=== PATIENT | male | born 1940 | race Hispanic/Latino ===

== ENCOUNTER 2022-01-17 10:52 | Inpatient (IN) | payer OTHER, MEDICARE ==
[~2022-01-17] VITALS: Ht 166.4 cm; Wt 74.4 kg
[2022-01-17] VITALS (48 sets, daily range): BP systolic 101–225; BP diastolic 35–80
[2022-01-17] MEDS ORDERED: NOREPINEPHRINE BITARTRATE 8 MG in DEXTROSE 5%-WATER 250 ML IV PRN (11:30)
[2022-01-17] MEDS ORDERED: AMINOCAPROIC ACID 5,000MG VIAL 15,000 MG in 0.9% NACL 500ML IV.SOLN 420 ML IV PRN (11:30)
[2022-01-17] MEDS ORDERED: METOPROLOL TARTRATE 25 MG TAB PO SCH (11:30)
[2022-01-17] MEDS ORDERED: EPINEPHRINE PF 1MG (1:1,000) 10 MG in 0.9% NACL 250ML 240 ML IV PRN ×2 (11:30→17:30)
[2022-01-17 11:49] LABS: HEMATOCRIT 28.5 % (42-54); MEAN CORPUSCULAR HEMOGLOBIN 29.2 pg (27.0-33.0); MEAN CORPUSCULAR HGB CONC 34.4 g/dL (32.0-36.0); MEAN CORPUSCULAR VOLUME 84.8 fL (79-99); RED BLOOD CELL COUNT(AUTO) 3.36 MIL/uL (4.50-6.20); RED CELL DISTRIBUTION WIDTH 13.6 % (11.0-15.5); WHITE BLOOD COUNT (AUTO) 3.1 K/uL (4.8-10.8)
[2022-01-17 12:00] LABS: ABG BASE EXCESS 2.7 mmol/L (-2.0-3.0); ABG OXYGEN SATURATION 98.4 % (95.0-99.0); ABG PCO2 21 mmHg (35-48)
[2022-01-17 12:00] LABS: HEMOGLOBIN A1C 6.9 % (4.0-6.0)
[2022-01-17 12:01] LABS: INR 0.98 (0.85-1.15); PROTHROMBIN TIME 10.7 SEC (9.6-11.6)
[2022-01-17 12:03] LABS: ALBUMIN 2.7 g/dL (3.5-5.0); CREATININE 2.5 mg/dL (0.5-1.5); PARTIAL THROMBOPLASTIN TIME 28.1 SEC (26.3-35.5); TOTAL PROTEIN, SERUM 6.4 g/dL (6.0-8.3)
[2022-01-17] MEDS ORDERED: NITROGLYCERIN 50MG/D5W 250ML 1 BOT ONE (14:51)
[2022-01-17] MEDS ORDERED: CEFAZOLIN SODIUM 1 GM VIAL IVP PRN (15:00)
[2022-01-17] MEDS ORDERED: EPINEPHRINE PF 1MG (1:1,000) 1 MG/ML AMP ONE (16:04)
[2022-01-17] MEDS ORDERED: PROTAMINE SULFATE 10 MG/ML 25ML VIAL IV ONE (16:04)
[2022-01-17] MEDS ORDERED: NOREPINEPHRINE BITARTRATE 1 MG/1 ML ML IV ONE (16:04)
[2022-01-17] MEDS ORDERED: PROPOFOL 10 MG/ML 20ML VIAL IV ONE (16:04)
[2022-01-17] MEDS ORDERED: HEPARIN 10,000 UNIT/10ML (1,000 UNIT/ML) VIAL ONE (16:04)
[2022-01-17] MEDS ORDERED: FENTANYL CITRATE PF 50 MCG/1 ML 20ML VIAL IJ ONE (16:04)
[2022-01-17] MEDS ORDERED: LIDOCAINE PF 100MG/5ML (2%) SYRINGE 5ML ONE (16:04)
[2022-01-17] MEDS ORDERED: ESMOLOL HCL 10 MG/ML 10 ML VIAL ONE (16:04)
[2022-01-17] MEDS ORDERED: SODIUM BICARB 50MEQ 50ML VIAL 150 ML ONE (16:04)
[2022-01-17] MEDS ORDERED: ROCURONIUM 10MG/1ML SYR 10 MG/ML ML ONE ×2 (16:05→18:02)
[2022-01-17] MEDS ORDERED: ETOMIDATE 20MG VIAL ONE (16:06)
[2022-01-17] MEDS ORDERED: LOSA100T58 PO (16:16)
[2022-01-17] MEDS ORDERED: ESOM40CA54 PO (16:16)
[2022-01-17] MEDS ORDERED: HYDR-4153 PO (16:16)
[2022-01-17] MEDS ORDERED: NIFE90TA45 PO (16:16)
[2022-01-17] MEDS ORDERED: METO100T14 PO (16:16)
[2022-01-17] MEDS ORDERED: FENO145T26 PO (16:16)
[2022-01-17] MEDS ORDERED: GLIP10TA19 PO (16:16)
[2022-01-17] MEDS ORDERED: ATOR-2 PO (16:16)
[2022-01-17] MEDS ORDERED: LINA5TAB PO (16:16)
[2022-01-17] MEDS ORDERED: DOXA4TAB3 PO (16:16)
[2022-01-17] MEDS ORDERED: FURO20TA4 PO (16:16)
[2022-01-17] MEDS ORDERED: MIRA50TA PO (16:16)
[2022-01-17] MEDS ORDERED: CEFAZOLIN SODIUM 1 GM VIAL ONE (16:33)
[2022-01-17] MEDS ORDERED: PAPAVERINE HCL 30 MG/ML 2ML VIAL ONE (16:34)
[2022-01-17] MEDS ORDERED: VASOPRESSIN 20 UNITS/ML 1ML VIAL ONE (16:46)
[2022-01-17] MEDS ORDERED: AMIODARONE 150MG VIAL ONE (16:46)
[2022-01-17 17:04] LABS: ABG BASE EXCESS -3.2 mmol/L (-2.0-3.0); ABG HCO3 21.4 mmol/L (21.0-28.0); ABG OXYGEN SATURATION 99.4 % (95.0-99.0); ABG PCO2 36 mmHg (35-48)
[2022-01-17] MEDS ORDERED: POTASSIUM CHLORIDE 20MEQ/100ML 300 ML IV ONE (17:07)
[2022-01-17] MEDS ORDERED: SODIUM BICARB 50MEQ 50ML VIAL 100 ML ONE (17:23)
[2022-01-17] MEDS ORDERED: MORPHINE 2 MG SYG IV PRN (17:30)
[2022-01-17] MEDS ORDERED: DEXTROSE 50%-WATER 50 ML DISP.SYRIN IV PRN (17:30)
[2022-01-17] MEDS ORDERED: PROPOFOL 1000 MG/100 ML 100 ML IV PRN (17:30)
[2022-01-17] MEDS ORDERED: NITROGLYCERIN 50MG/D5W 250ML 250 BOT IV SCH (17:30)
[2022-01-17] MEDS ORDERED: 0.9%NACL 1000ML 1,000 ML IV SCH (17:30)
[2022-01-17] MEDS ORDERED: MAGNESIUM 2GM PREMIX 50ML 50 ML IV PRN (17:30)
[2022-01-17] MEDS ORDERED: 0.9% NACL 500ML IV.SOLN 500 ML IV SCH (17:30)
[2022-01-17] MEDS ORDERED: POTASSIUM PHOS 15 mMOL+NS250ML 250 ML IV PRN (17:30)
[2022-01-17] MEDS ORDERED: ALBUMIN (HUMAN) 5% 250 ML IV PRN (17:30)
[2022-01-17] MEDS ORDERED: NOREPINEPHRIN 4MG/NS 250ML 250 ML IV PRN (17:30)
[2022-01-17] MEDS ORDERED: GLUCAGON 1MG KIT 1 MG ML IM PRN (17:30)
[2022-01-17] MEDS ORDERED: INSULIN REGULAR, HUMAN 3ML 100 UNIT in 0.9%NACL 100ML 99 ML IV SCH ×2 (17:30)
[2022-01-17] MEDS ORDERED: AMINOCAPROIC ACID 5,000MG VIAL 15,000 MG in 0.9% NACL 250ML 250 ML IV SCH (17:30)
[2022-01-17] MEDS ORDERED: ONDANSETRON 4MG INJ IV PRN (17:30)
[2022-01-17] MEDS ORDERED: TRAMADOL HCL 50 MG TABLET PO PRN (17:30)
[2022-01-17] MEDS ORDERED: ACETAMINOPHEN 650 MG SUPPOSITORY RC PRN (17:30)
[2022-01-17] MEDS ORDERED: 0.9%NACL 10ML VIAL IVP PRN (17:30)
[2022-01-17 17:43] LABS: ABG BASE EXCESS -1.6 mmol/L (-2.0-3.0); ABG HCO3 22.7 mmol/L (21.0-28.0); ABG OXYGEN SATURATION 99.4 % (95.0-99.0); ABG PCO2 37 mmHg (35-48)
[2022-01-17] MEDS ORDERED: MAGNESIUM SULFATE 4.06 MEQ/ML ***TPN USE ONLY IJ ONE (18:09)
[2022-01-17 18:23] LABS: ABG BASE EXCESS 4.5 mmol/L (-2.0-3.0); ABG HCO3 27.6 mmol/L (21.0-28.0); ABG OXYGEN SATURATION 99.2 % (95.0-99.0); ABG PCO2 35 mmHg (35-48)
[2022-01-17 19:10] LABS: ABG BASE EXCESS -3.1 mmol/L (-2.0-3.0); ABG HCO3 21.3 mmol/L (21.0-28.0); ABG OXYGEN SATURATION 99.4 % (95.0-99.0); ABG PCO2 36 mmHg (35-48)
[2022-01-17 19:43] LABS: ABG BASE EXCESS -2.6 mmol/L (-2.0-3.0); ABG OXYGEN SATURATION 99.3 % (95.0-99.0); ABG PCO2 29 mmHg (35-48)
[2022-01-17] MEDS ORDERED: ASPIRIN 81MG CHEW TAB NG ONE (20:00)
[2022-01-17] MEDS: FAMOTIDINE 20MG VIAL IV SCH (20:32)
[2022-01-17] MEDS: ATORVASTATIN 40 MG TABLET PO SCH (20:32)
[2022-01-17 20:38] LABS: ABG BASE EXCESS 2.3 mmol/L (-2.0-3.0); ABG HCO3 23.9 mmol/L (21.0-28.0); ABG OXYGEN SATURATION 99.1 % (95.0-99.0); ABG PCO2 29 mmHg (35-48)
[2022-01-17] MEDS: POTASSIUM CHLORIDE 20MEQ/100ML 100 ML IV PRN ×3 (20:42→22:58)
[2022-01-17] MEDS: CALCIUM GLUC 1GM 1 GM in 0.9%NACL 50ML 50 ML IV PRN (20:42)
[2022-01-17 20:46] LABS: MEAN CORPUSCULAR HEMOGLOBIN 29.6 pg (27.0-33.0); MEAN CORPUSCULAR HGB CONC 34.9 g/dL (32.0-36.0); MEAN CORPUSCULAR VOLUME 84.8 fL (79-99); RED BLOOD CELL COUNT(AUTO) 4.6 MIL/uL (4.50-6.20); RED CELL DISTRIBUTION WIDTH 13.6 % (11.0-15.5); WHITE BLOOD COUNT (AUTO) 3.9 K/uL (4.8-10.8)
[2022-01-17 20:56] LABS: INR 1.17 (0.85-1.15); PROTHROMBIN TIME 12.6 SEC (9.6-11.6)
[2022-01-17 20:57] LABS: CREATININE 1.7 mg/dL (0.5-1.5); MAGNESIUM 2.5 mg/dL (1.80-2.40); PHOSPHORUS 3.5 mg/dL (2.5-4.9); POTASSIUM 3.6 mmol/L (3.5-5.1)
[2022-01-17 20:58] LABS: PARTIAL THROMBOPLASTIN TIME 26.1 SEC (26.3-35.5)
[2022-01-17] MEDS ORDERED: FAMOTIDINE 20MG VIAL IV SCH (21:00)
[2022-01-17 21:34] LABS: ABG BASE EXCESS 1.5 mmol/L (-2.0-3.0); ABG HCO3 23.1 mmol/L (21.0-28.0); ABG OXYGEN SATURATION 98.6 % (95.0-99.0); ABG PCO2 29 mmHg (35-48)
[2022-01-17 22:35] LABS: ABG BASE EXCESS -0.6 mmol/L (-2.0-3.0); ABG HCO3 22.2 mmol/L (21.0-28.0); ABG OXYGEN SATURATION 98.4 % (95.0-99.0); ABG PCO2 31 mmHg (35-48)
[2022-01-17] MEDS: CEFAZOLIN SODIUM 1 GM VIAL IV SCH (22:39)
[2022-01-17 23:46] LABS: ABG BASE EXCESS 0.2 mmol/L (-2.0-3.0); ABG HCO3 23.3 mmol/L (21.0-28.0); ABG OXYGEN SATURATION 97.5 % (95.0-99.0); ABG PCO2 33 mmHg (35-48)
[2022-01-18] VITALS (72 sets, daily range): BP systolic 84–215; BP diastolic 28–109
[2022-01-18] MEDS ORDERED: NICARDIPINE 25MG INJ 100 MG in 0.9%NACL 100ML 60 ML IV SCH ×2
[2022-01-18] MEDS ORDERED: ALBUMIN (HUMAN) 5% 250 ML IV ONE ×2 (00:06→00:28)
[2022-01-18] MEDS ORDERED: NICARDIPINE 25MG INJ IV ONE (00:07)
[2022-01-18] MEDS: 0.9%NACL 1000ML 1,000 ML IV SCH ×2 (00:28→14:36)
[2022-01-18] MEDS ORDERED: ALBUMIN (HUMAN) 5% 250 ML IV SCH ×2 (00:30)
[2022-01-18] MEDS: CALCIUM GLUC 1GM 1 GM in 0.9%NACL 50ML 50 ML IV PRN ×4 (00:31→16:46)
[2022-01-18 00:50] LABS: ABG BASE EXCESS -1.4 mmol/L (-2.0-3.0); ABG HCO3 21.6 mmol/L (21.0-28.0); ABG OXYGEN SATURATION 97.6 % (95.0-99.0); ABG PCO2 30 mmHg (35-48)
[2022-01-18] MEDS: POTASSIUM CHLORIDE 20MEQ/100ML 100 ML IV PRN ×3 (00:53→02:37)
[2022-01-18] MEDS: SODIUM BICARB 50MEQ 50ML VIAL IV PRN ×4 (00:54→16:47)
[2022-01-18 01:32] LABS: ABG BASE EXCESS -0.6 mmol/L (-2.0-3.0); ABG HCO3 21.7 mmol/L (21.0-28.0); ABG OXYGEN SATURATION 97.9 % (95.0-99.0); ABG PCO2 28 mmHg (35-48)
[2022-01-18] MEDS: DEXMEDETOMIDINE 400MCG/NS100ML IV SCH ×2 (01:57→05:52)
[2022-01-18] MEDS: MORPHINE 4 MG SYG IV PRN ×2 (02:19→04:16)
[2022-01-18 02:32] LABS: ABG BASE EXCESS -1.6 mmol/L (-2.0-3.0); ABG HCO3 21.8 mmol/L (21.0-28.0); ABG OXYGEN SATURATION 97.4 % (95.0-99.0); ABG PCO2 32 mmHg (35-48)
[2022-01-18 04:37] LABS: ABG OXYGEN SATURATION 98.6 % (95.0-99.0); ABG PCO2 38 mmHg (35-48)
[2022-01-18 04:44] LABS: HEMATOCRIT 27.5 % (42-54); MEAN CORPUSCULAR HEMOGLOBIN 28.7 pg (27.0-33.0); MEAN CORPUSCULAR HGB CONC 33.8 g/dL (32.0-36.0); MEAN CORPUSCULAR VOLUME 84.9 fL (79-99); RED BLOOD CELL COUNT(AUTO) 3.24 MIL/uL (4.50-6.20); RED CELL DISTRIBUTION WIDTH 13.8 % (11.0-15.5); WHITE BLOOD COUNT (AUTO) 3.5 K/uL (4.8-10.8)
[2022-01-18 04:55] LABS: INR 1.16 (0.85-1.15); PROTHROMBIN TIME 12.5 SEC (9.6-11.6)
[2022-01-18 04:56] LABS: CREATININE 2.1 mg/dL (0.5-1.5); MAGNESIUM 2.1 mg/dL (1.80-2.40); PARTIAL THROMBOPLASTIN TIME 28.6 SEC (26.3-35.5); PHOSPHORUS 2.1 mg/dL (2.5-4.9); POTASSIUM 4.8 mmol/L (3.5-5.1)
[2022-01-18] MEDS: CEFAZOLIN SODIUM 1 GM VIAL IV SCH ×2 (06:15→14:36)
[2022-01-18 06:23] LABS: ABG HCO3 24.1 mmol/L (21.0-28.0); ABG PCO2 37 mmHg (35-48)
[2022-01-18] MEDS: FAMOTIDINE 20MG VIAL IV SCH (08:01)
[2022-01-18] MEDS: TAMSULOSIN HCL 0.4 MG CAP.ER.24H PO SCH (08:01)
[2022-01-18 08:33] LABS: ABG BASE EXCESS 0.1 mmol/L (-2.0-3.0); ABG OXYGEN SATURATION 97.5 % (95.0-99.0); ABG PCO2 36 mmHg (35-48)
[2022-01-18] MEDS ORDERED: ASPIRIN 81 MG EC TAB PO SCH (09:00)
[2022-01-18] MEDS: TRAMADOL HCL 50 MG TABLET PO PRN ×3 (09:07→23:30)
[2022-01-18 09:48] LABS: ABG BASE EXCESS 0.2 mmol/L (-2.0-3.0); ABG HCO3 23.6 mmol/L (21.0-28.0); ABG OXYGEN SATURATION 97.5 % (95.0-99.0); ABG PCO2 34 mmHg (35-48)
[2022-01-18] MEDS ORDERED: FUROSEMIDE 20MG VIAL IV SCH (11:30)
[2022-01-18 11:58] LABS: ABG BASE EXCESS -1.1 mmol/L (-2.0-3.0); ABG HCO3 22.5 mmol/L (21.0-28.0); ABG OXYGEN SATURATION 97.5 % (95.0-99.0); ABG PCO2 33 mmHg (35-48)
[2022-01-18 15:04] LABS: ABG BASE EXCESS -1.4 mmol/L (-2.0-3.0); ABG HCO3 22.4 mmol/L (21.0-28.0); ABG OXYGEN SATURATION 97.4 % (95.0-99.0); ABG PCO2 34 mmHg (35-48)
[2022-01-18 16:12] LABS: ABG BASE EXCESS -1.7 mmol/L (-2.0-3.0); ABG HCO3 22.3 mmol/L (21.0-28.0); ABG OXYGEN SATURATION 95.6 % (95.0-99.0); ABG PCO2 35 mmHg (35-48)
[2022-01-18] MEDS ORDERED: SOD PHOSPHATE 45 MMOL/15 ML VI 15 MMOL in 0.9% NACL 250ML 250 ML IV PRN (19:30)
[2022-01-18] MEDS: ACETAMINOPHEN 325 MG TAB PO PRN (19:36)
[2022-01-18] MEDS: ATORVASTATIN 40 MG TABLET PO SCH (20:05)
[2022-01-18] MEDS: FUROSEMIDE 20MG VIAL IV SCH (20:05)
[2022-01-18] MEDS: METOPROLOL TARTRATE 25 MG TAB PO SCH (21:05)
[2022-01-19] VITALS (39 sets, daily range): BP systolic 102–175; BP diastolic 38–161
[2022-01-19] MEDS: ACETAMINOPHEN 325 MG TAB PO PRN ×2 (02:18→09:52)
[2022-01-19 04:24] LABS: HEMATOCRIT 26.6 % (42-54); MEAN CORPUSCULAR HEMOGLOBIN 29.2 pg (27.0-33.0); MEAN CORPUSCULAR HGB CONC 33.5 g/dL (32.0-36.0); MEAN CORPUSCULAR VOLUME 87.2 fL (79-99); RED BLOOD CELL COUNT(AUTO) 3.05 MIL/uL (4.50-6.20); RED CELL DISTRIBUTION WIDTH 14.5 % (11.0-15.5); WHITE BLOOD COUNT (AUTO) 2.8 K/uL (4.8-10.8)
[2022-01-19 04:33] LABS: CREATININE 2.5 mg/dL (0.5-1.5); MAGNESIUM 1.9 mg/dL (1.80-2.40); POTASSIUM 4.1 mmol/L (3.5-5.1)
[2022-01-19] MEDS: TRAMADOL HCL 50 MG TABLET PO PRN (05:31)
[2022-01-19] MEDS: INSULIN HUMULIN R 100 UNIT/ML 3ML SQ SCH ×4 (05:53→20:59)
[2022-01-19] MEDS: METOPROLOL TARTRATE 25 MG TAB PO SCH ×2 (08:16→20:59)
[2022-01-19] MEDS: TAMSULOSIN HCL 0.4 MG CAP.ER.24H PO SCH (08:16)
[2022-01-19] MEDS: FAMOTIDINE 20MG VIAL IV SCH (08:16)
[2022-01-19] MEDS: FUROSEMIDE 20MG VIAL IV SCH ×2 (08:16→20:58)
[2022-01-19] MEDS: CLOPIDOGREL 75MG TAB PO SCH (08:16)
[2022-01-19] MEDS: AMLODIPINE 5 MG TAB PO SCH (11:02)
[2022-01-19] MEDS: GUAIFENESIN 600 MG TABLET.ER PO SCH ×2 (12:30→20:59)
[2022-01-19] MEDS: ATORVASTATIN 40 MG TABLET PO SCH (20:58)
[2022-01-19] MEDS: BALSAM PERU/CASTOR OIL 60 GM TUBE TP SCH (21:00)
[2022-01-20] VITALS (8 sets, daily range): BP systolic 154–192; BP diastolic 63–78
[2022-01-20 03:26] LABS: HEMATOCRIT 26.5 % (42-54); MEAN CORPUSCULAR HEMOGLOBIN 29.4 pg (27.0-33.0); MEAN CORPUSCULAR HGB CONC 33.6 g/dL (32.0-36.0); MEAN CORPUSCULAR VOLUME 87.5 fL (79-99); PLATELET COUNT (AUTO) 87 K/uL (130-400); RED BLOOD CELL COUNT(AUTO) 3.03 MIL/uL (4.50-6.20); RED CELL DISTRIBUTION WIDTH 14.4 % (11.0-15.5)
[2022-01-20 03:45] LABS: ALBUMIN 2.1 g/dL (3.5-5.0); CREATININE 2.5 mg/dL (0.5-1.5); MAGNESIUM 2.2 mg/dL (1.80-2.40); PHOSPHORUS 3.8 mg/dL (2.5-4.9); POTASSIUM 3.9 mmol/L (3.5-5.1); TOTAL PROTEIN, SERUM 5.3 g/dL (6.0-8.3)
[2022-01-20 03:51] LABS: INR 1.11 (0.85-1.15)
[2022-01-20 03:52] LABS: PARTIAL THROMBOPLASTIN TIME 33.4 SEC (26.3-35.5)
[2022-01-20] MEDS: INSULIN HUMULIN R 100 UNIT/ML 3ML SQ SCH ×4 (06:14→20:31)
[2022-01-20] MEDS: GUAIFENESIN 600 MG TABLET.ER PO SCH ×2 (08:08→20:30)
[2022-01-20] MEDS: AMLODIPINE 5 MG TAB PO SCH (08:08)
[2022-01-20] MEDS: CLOPIDOGREL 75MG TAB PO SCH (08:08)
[2022-01-20] MEDS: METOPROLOL TARTRATE 25 MG TAB PO SCH ×2 (08:09→20:23)
[2022-01-20] MEDS: TAMSULOSIN HCL 0.4 MG CAP.ER.24H PO SCH (08:09)
[2022-01-20] MEDS: BALSAM PERU/CASTOR OIL 60 GM TUBE TP SCH ×3 (08:10→20:31)
[2022-01-20] MEDS: FAMOTIDINE 20MG VIAL IV SCH (08:10)
[2022-01-20] MEDS: FUROSEMIDE 20MG VIAL IV SCH ×2 (08:10→20:23)
[2022-01-20] MEDS ORDERED: ENOXAPARIN SODIUM 30 MG/0.3 ML SQ SCH (09:00)
[2022-01-20] MEDS: ATORVASTATIN 40 MG TABLET PO SCH (20:23)
[2022-01-20] MEDS: HYDRALAZINE 25MG TABLET PO SCH (20:23)
[2022-01-21] VITALS (8 sets, daily range): BP systolic 143–190; BP diastolic 58–77
[2022-01-21] MEDS ORDERED: LABETALOL 20MG VIAL IV ONE (00:30)
[2022-01-21 04:12] LABS: HEMATOCRIT 26.6 % (42-54); MEAN CORPUSCULAR HEMOGLOBIN 29.1 pg (27.0-33.0); MEAN CORPUSCULAR HGB CONC 33.8 g/dL (32.0-36.0); MEAN CORPUSCULAR VOLUME 86.1 fL (79-99); RED BLOOD CELL COUNT(AUTO) 3.09 MIL/uL (4.50-6.20); RED CELL DISTRIBUTION WIDTH 14.4 % (11.0-15.5)
[2022-01-21 05:04] LABS: CREATININE 1.8 mg/dL (0.5-1.5); POTASSIUM 3.3 mmol/L (3.5-5.1)
[2022-01-21] MEDS: INSULIN HUMULIN R 100 UNIT/ML 3ML SQ SCH ×4 (06:28→19:56)
[2022-01-21] MEDS: POTASSIUM CHLORIDE 10MEQ/100ML 100 ML IV PRN ×2 (06:34→11:00)
[2022-01-21] MEDS: LIDOCAINE HCL-MPF 1% 2ML VIAL IV PRN ×2 (06:35→10:59)
[2022-01-21] MEDS: FAMOTIDINE 20MG VIAL IV SCH (10:47)
[2022-01-21] MEDS: FUROSEMIDE 20MG VIAL IV SCH ×2 (10:54→20:38)
[2022-01-21] MEDS: METOPROLOL TARTRATE 25 MG TAB PO SCH ×2 (11:00→20:39)
[2022-01-21] MEDS: GUAIFENESIN 600 MG TABLET.ER PO SCH ×2 (11:00→20:39)
[2022-01-21] MEDS: TAMSULOSIN HCL 0.4 MG CAP.ER.24H PO SCH (11:01)
[2022-01-21] MEDS: AMLODIPINE 5 MG TAB PO SCH (11:01)
[2022-01-21] MEDS: CLOPIDOGREL 75MG TAB PO SCH (11:01)
[2022-01-21] MEDS: BALSAM PERU/CASTOR OIL 60 GM TUBE TP SCH ×3 (11:02→20:46)
[2022-01-21] MEDS: HYDRALAZINE 25MG TABLET PO SCH ×3 (11:08→20:39)
[2022-01-21] MEDS: ATORVASTATIN 40 MG TABLET PO SCH (20:38)
[2022-01-22 03:16] VITALS: BP 178/66
[2022-01-22] MEDS ORDERED: LABETALOL 20MG VIAL IV ONE (04:10)
[2022-01-22 04:52] LABS: BASOPHILS % (AUTO) 0.4 % (0.0-5.0); EOSINOPHILS % (AUTO) 0.4 % (0.0-8.0); HEMATOCRIT 27.4 % (42-54); LYMPHOCYTES % (AUTO) 6.9 % (21.0-51.0); MEAN CORPUSCULAR HEMOGLOBIN 28.8 pg (27.0-33.0); MEAN CORPUSCULAR HGB CONC 32.8 g/dL (32.0-36.0); MEAN CORPUSCULAR VOLUME 87.8 fL (79-99); MONOCYTES % (AUTO) 12.3 % (3.0-13.0); NEUTROPHILS % (AUTO) 77.5 % (40.0-77.0); PLATELET COUNT (AUTO) 155 K/uL (130-400); RED BLOOD CELL COUNT(AUTO) 3.12 MIL/uL (4.50-6.20); RED CELL DISTRIBUTION WIDTH 14.2 % (11.0-15.5); WHITE BLOOD COUNT (AUTO) 2.8 K/uL (4.8-10.8)
[2022-01-22 05:08] LABS: CREATININE 1.9 mg/dL (0.5-1.5)
[2022-01-22 05:15] LABS: BAND NEUTROPHILS % (MANUAL) 4 % (0-2); LYMPHOCYTES % (MANUAL) 11 % (22-44); MONOCYTES % (MANUAL) 6 % (2-9); SEGMENTED NEUTROPHILS % 79 % (40-70)
[2022-01-22 05:16] LABS: MAN.DIFF COMMENT-IMPRESSION MANUAL DIFFERENTIAL
[2022-01-22] MEDS ORDERED: LIDOCAINE HCL-MPF 1% 2ML VIAL IV PRN (05:30)
[2022-01-22] MEDS ORDERED: POTASSIUM CHLORIDE 10MEQ/100ML 100 ML IV PRN (05:30)
[2022-01-22] MEDS: INSULIN HUMULIN R 100 UNIT/ML 3ML SQ SCH ×4 (06:05→21:00)
[2022-01-22] MEDS: POTASSIUM CHLORIDE 20MEQ/100ML 100 ML IV PRN (06:21)
[2022-01-22] MEDS: LIDOCAINE HCL-MPF 1% 2ML VIAL IV PRN (06:21)
[2022-01-22 08:00] VITALS: BP 154/67
[2022-01-22] MEDS: HYDRALAZINE 25MG TABLET PO SCH ×3 (09:42→21:25)
[2022-01-22] MEDS: CLOPIDOGREL 75MG TAB PO SCH (09:42)
[2022-01-22] MEDS: GUAIFENESIN 600 MG TABLET.ER PO SCH ×2 (09:42→21:25)
[2022-01-22] MEDS: AMLODIPINE 5 MG TAB PO SCH (09:42)
[2022-01-22] MEDS: FUROSEMIDE 20MG VIAL IV SCH ×2 (09:43→21:25)
[2022-01-22] MEDS: BALSAM PERU/CASTOR OIL 60 GM TUBE TP SCH ×3 (09:43→21:26)
[2022-01-22] MEDS: METOPROLOL TARTRATE 25 MG TAB PO SCH ×2 (09:43→21:25)
[2022-01-22] MEDS: FAMOTIDINE 20MG VIAL IV SCH (09:43)
[2022-01-22] MEDS: TAMSULOSIN HCL 0.4 MG CAP.ER.24H PO SCH (09:43)
[2022-01-22 11:41] VITALS: BP 139/58
[2022-01-22 16:00] VITALS: BP 179/69
[2022-01-22] MEDS: LABETALOL 20MG VIAL IV PRN ×2 (17:20→23:48)
[2022-01-22 19:04] VITALS: BP 161/64
[2022-01-22] MEDS: ATORVASTATIN 40 MG TABLET PO SCH (21:25)
[2022-01-22 23:09] VITALS: BP 166/55
[2022-01-23 00:47] VITALS: BP 157/58
[2022-01-23 03:03] VITALS: BP 187/64
[2022-01-23 03:34] VITALS: BP 155/56
[2022-01-23 03:42] LABS: HEMATOCRIT 27.7 % (42-54); MEAN CORPUSCULAR HEMOGLOBIN 28.7 pg (27.0-33.0); MEAN CORPUSCULAR HGB CONC 33.6 g/dL (32.0-36.0); MEAN CORPUSCULAR VOLUME 85.5 fL (79-99); RED BLOOD CELL COUNT(AUTO) 3.24 MIL/uL (4.50-6.20); RED CELL DISTRIBUTION WIDTH 13.9 % (11.0-15.5); RETICULOCYTE % (AUTO) 2.21 % (0.42-2.23); WHITE BLOOD COUNT (AUTO) 2.8 K/uL (4.8-10.8)
[2022-01-23 04:03] LABS: % IRON SATURATION 26.4 % (30-44)
[2022-01-23 04:21] LABS: CARBON DIOXIDE 27 mmol/L (21-32); CHLORIDE 105 mmol/L (101-111); CREATININE 1.9 mg/dL (0.5-1.5); GLOMERULAR FILTR. RATE CALC 37 mL/min (>60); GLUCOSE,RANDOM 164 mg/dL (70-105); POTASSIUM 3.1 mmol/L (3.5-5.1); SODIUM SERUM 141 mmol/L (136-145); UREA NITROGEN, BLOOD 48 mg/dL (7-18)
[2022-01-23] MEDS ORDERED: KCL 20 MEQ ERTAB PO PRN (06:00)
[2022-01-23] MEDS: INSULIN HUMULIN R 100 UNIT/ML 3ML SQ SCH ×2 (06:07→11:17)
[2022-01-23 08:43] VITALS: BP 169/82
[2022-01-23] MEDS: POTASSIUM CHLORIDE 10% ELIXIR 20 MEQ/15 ML UDCUP PO PRN ×2 (08:47→11:06)
[2022-01-23] MEDS: METOPROLOL TARTRATE 25 MG TAB PO SCH (08:48)
[2022-01-23] MEDS: AMLODIPINE 5 MG TAB PO SCH (08:48)
[2022-01-23] MEDS: CLOPIDOGREL 75MG TAB PO SCH (08:49)
[2022-01-23] MEDS: TAMSULOSIN HCL 0.4 MG CAP.ER.24H PO SCH (08:49)
[2022-01-23] MEDS: GUAIFENESIN 600 MG TABLET.ER PO SCH (08:49)
[2022-01-23] MEDS: BALSAM PERU/CASTOR OIL 60 GM TUBE TP SCH (08:49)
[2022-01-23] MEDS: FAMOTIDINE 20MG VIAL IV SCH (08:56)
[2022-01-23] MEDS: FUROSEMIDE 20MG VIAL IV SCH (08:56)
[2022-01-23] MEDS ORDERED: HYDRALAZINE 25MG TABLET PO SCH (09:00)
[2022-01-23] MEDS ORDERED: FUROSEMIDE 20 MG TABLET PO SCH (10:30)
[2022-01-23 12:20] VITALS: BP 146/57
[2022-01-24] MEDS ORDERED: KCL 20 MEQ ERTAB PO SCH (09:00)
== END 2022-01-23 13:05 | DRG 235 ==
LOC: EDSEX 10:52 → 2BH 10:52 → 2CV 14:53 → 2CH 01-18 18:15 → 2DH 01-19 17:35
PROVIDERS: ADMIT Thoracic Surgery (Cardiothoracic Vascular Surgery); ATTEND Thoracic Surgery (Cardiothoracic Vascular Surgery)
PROC: 06BP4ZZ Excision of Right Saphenous Vein, Percutaneous Endoscopic Approach (ICD-10-PCS; 2022-01-17)
PROC: 30233N1 Transfusion of Nonautologous Red Blood Cells into Peripheral Vein, Percutaneous Approach (ICD-10-PCS; 2022-01-17)
PROC: 5A1221Z Performance of Cardiac Output, Continuous (ICD-10-PCS; 2022-01-17)
PROC: 03HY32Z Insertion of Monitoring Device into Upper Artery, Percutaneous Approach (ICD-10-PCS; 2022-01-17)
PROC: 4A133B1 Monitoring of Arterial Pressure, Peripheral, Percutaneous Approach (ICD-10-PCS; 2022-01-17)
PROC: 4A133J1 Monitoring of Arterial Pulse, Peripheral, Percutaneous Approach (ICD-10-PCS; 2022-01-17)
PROC: 05HY33Z Insertion of Infusion Device into Upper Vein, Percutaneous Approach (ICD-10-PCS; 2022-01-17)
PROC: 02100Z9 Bypass Coronary Artery, One Artery from Left Internal Mammary, Open Approach (ICD-10-PCS; principal; 2022-01-17 15:55)
PROC: 021109W Bypass Coronary Artery, Two Arteries from Aorta with Autologous Venous Tissue, Open Approach (ICD-10-PCS; 2022-01-17 15:55)
PROC: 06BQ4ZZ Excision of Left Saphenous Vein, Percutaneous Endoscopic Approach (ICD-10-PCS; 2022-01-17 15:55)
DX: I25.10 Atherosclerotic heart disease of native coronary artery without angina pectoris (principal); I21.4 Non-ST elevation (NSTEMI) myocardial infarction; J95.1 Acute pulmonary insufficiency following thoracic surgery; K25.4 Chronic or unspecified gastric ulcer with hemorrhage; E87.3 Alkalosis; D61.818 Other pancytopenia; D62 Acute posthemorrhagic anemia; N17.9 Acute kidney failure, unspecified; I12.9 Hypertensive chronic kidney disease with stage 1 through stage 4 chronic kidney disease, or unspecified chronic kidney disease; N18.32 Chronic kidney disease, stage 3b; C61 Malignant neoplasm of prostate; E78.5 Hyperlipidemia, unspecified; Z20.822 Contact with and (suspected) exposure to COVID-19; E11.22 Type 2 diabetes mellitus with diabetic chronic kidney disease; E78.00 Pure hypercholesterolemia, unspecified; F17.200 Nicotine dependence, unspecified, uncomplicated; J44.9 Chronic obstructive pulmonary disease, unspecified; Z79.899 Other long term (current) drug therapy
CPT/HCPCS: 36415; 36600; 71045; 74230; 80048; 80053; 80061; 82435; 82607; 82746; 82803; 82947; 82948; 83036; 83540; 83550; 83605; 83735; 83880; 84100; 84132; 84295; 85018; 85025; 85027; 85045; 85347; 85520; 85610; 85730; 86022; 86334; 86850; 86900; 86901; 86923; 87635; 92611; 93005; 93880; 94002; 94003; 94010; 94150; 97039; A7048; G0378; J0171; J0282; J0610; J0690; J1644; J1815; J1940; J2001; J2270; J2440; J2704; J2720; J3010; J3475; J3480; J3490; J7030; J7040; P9016; P9045